=== PATIENT | female | born 1965 | race Caucasian/White ===

== ENCOUNTER 2018-10-06 01:18 | Emergency (ER) | payer OTHER, SELFPAY ==
[2018-10-06 01:25] VITALS: BP 143/84; PULSE 68; RESP 16; TEMP 36.5; O2SAT 100; BMI 28.3
--- NOTE | 2018-10-06 01:43 | ED.EAR ---
HPI - Ear Problem General Chief complaint: Ear Stated complaint: Right ear pain Time Seen by Provider: 10/06/18 01:20 Source: patient and family Mode of arrival: ambulatory Limitations: no limitations History of Present Illness HPI Narrative: 53-year-old female nonsmoker with benign medical history presents with a family friend in the chief complaint of right-sided sore throat and ear pain for the past day or so. She states she had an episode about a week ago when she was up on amount could but it had resolved. She has had a bit of a runny nose and some nasal congestion, she denies any fever, nausea or vomiting. she denies any change in her ability to hear from her right ear, she denies any skin buttock, swimming or trauma MD Complaint: ear pain Location: right ear Duration: constant Severity: moderate Relieving factors: nothing Exacerbating factors: chewing Context: recent plane flight Discharge from ear: no Treatment prior to arrival: none Review of Systems Constitutional Denies chills, Denies fever(s), Denies lethargy and Denies weakness Eyes Denies change in vision, Denies eye discharge, Denies irritation and Denies loss of vision ENT Ears, Nose, Mouth, and Throat: Denies change in voice, Reports otalgia, Reports nasal congestion, Reports nasal discharge, Denies neck pain and Reports sore throat Cardiovascular Denies chest pain, Denies irregular heart rhythm, Denies lightheadedness, Denies palpitations, Denies dyspnea, Denies dyspnea on exertion and Denies orthopnea Respiratory Denies cough, Denies dyspnea, Denies dyspnea on exertion and Denies wheezing Gastrointestinal Gastrointestinal: Denies abdominal pain, Denies change in bowel habits, Denies diarrhea, Denies nausea and Denies vomiting Genitourinary Denies hematuria, Denies flank pain, Denies urinary incontinence and Denies urinary urgency Musculoskeletal Denies neck pain Integumentary/Breasts Denies pruritus, Denies erythema, Denies rash and Denies wounds Neurologic Denies confusion, Denies loss of vision and Denies weakness Psychiatric Denies anxiety, Denies confusion, Denies depression, Denies homicidal ideation and Denies suicidal ideation Endocrine Denies palpitations Hematologic/Lymphatic Denies easy bruising Allergic/Immunologic Denies wheezing PFSH Social History Smoking Status: Never smoker Social History Smoking Status: Never smoker Exam Narrative Exam Narrative: GEN: AOx3 and in mild distress EYES: Pupils are equal, round, and reactive to light and accommodation. Extraoccular muscles are intact bilaterally. There is no subconjunctival hemorrhage or exudate. ENT: R TM with clear effusion. No bulging, no erythema. Postnasal drip noted but no tonsillar or posterior pharyngeal erythema, edema or exudate. CHEST: Lungs are clear to auscultation bilaterally and free of wheezes, rales, or rhonchi. Heart rate is regular rhythm, there are no murmurs, clicks, rubs, or gallops. There is no chest wall tenderness. ABD: Abdomen is soft and nontender. There is no guarding or rebound. Bowel sounds are normal in all 4 quadrants. There is no mass or organomegaly. EXT: Full painless ROM of all extremities with no loss of sensation or strength. SKIN: Warm, pink, and dry. No erythema or rash Initial Vital Signs Initial Vital Signs: Vital Signs Temperature 97.7 F 10/06/18 01:25 Pulse Rate 68 10/06/18 01:25 Respiratory Rate 16 10/06/18 01:25 Blood Pressure 143/84 H 10/06/18 01:25 Pulse Oximetry 100 10/06/18 01:25 Course Orders Ordered: ED Orders 10/06/18 01:35 Strep Grp A by PCR Rapid Stat Vital Signs - 8 hr 10/06/18 01:25 Temperature 97.7 F Pulse Rate 68 Respiratory Rate 16 Blood Pressure 143/84 H Pulse Oximetry 100 Medical Decision Making Lab Data Point of Care Testing Rapid Strep A Negative Point of care testing: Point of Care Testing Rapid Strep A Negative Discharge Plan Departure Patient Disposition: Home Clinical Impression: Eustachian tube dysfunction Qualifiers: Laterality: right Qualified Code(s): H69.81 - Other specified disorders of Eustachian tube, right ear Discharge Date/Time: 10/06/18 02:59 Interventions: ED Discharge Assessment Last Done: 10/06/18 02:59 Instructions: DI for Ear Pain-Adult Activity Restrictions/Additional Instructions: *You have been diagnosed with [right ear pain, eustachian tube dysfunction] *What to do: *Take medications as directed: [id number] antihistamine (Huma, Zyrtec, Claritin), decongestant) ease phenylephrine or pseudoephedrine). My recommendation would be Huma D which is [id number] and includes both an antihistamine and decongestant *Follow up with your primary care provider in 2-3 days, call for an appointment. Let them know you were seen in the Emergency Department and that we ask that you be seen in follow up *Return to ER if you should have any new, worsening or concerning symptoms
[2018-10-06 02:59] VITALS: BP 140/82; PULSE 65; RESP 20; O2SAT 100
== END 2018-10-06 02:59 | disposition home or self-care (01) ==
PROVIDERS: Emergency Provider Emergency Medicine
DX: H69.81 Other specified disorders of Eustachian tube, right ear (principal)
CPT/HCPCS: 87880; 99282; 99283